=== PATIENT | female | born 1995 | race Caucasian/White ===

== ENCOUNTER 2019-01-21 06:19 | Emergency (ER) | payer MEDICAID ==
[~2019-01-21] VITALS: Ht 170.2 cm; Wt 56.7 kg
[2019-01-21 06:23] VITALS: Ht 170.2 cm; Wt 56.7 kg
[2019-01-21 07:54] VITALS: BP 113/72
== END 2019-01-21 07:54 | disposition home or self-care (01) ==
LOC: ED 06:19
DX: S39.012A Strain of muscle, fascia and tendon of lower back, initial encounter (principal); S69.91XA Unspecified injury of right wrist, hand and finger(s), initial encounter; V48.5XXA Car driver injured in noncollision transport accident in traffic accident, initial encounter; Y93.I9 Activity, other involving external motion; Y92.488 Other paved roadways as the place of occurrence of the external cause; Y99.8 Other external cause status
CPT/HCPCS: A4570